=== PATIENT | female | born 1945 | race Caucasian/White ===

== ENCOUNTER 2018-10-28 21:03 | Emergency (ER) | payer MEDICARE ==
[~2018-10-28] VITALS: Ht 165.1 cm; Wt 63.5 kg
--- OUTSIDE RECORDS SUMMARY | ~2018-10-28 | XMS | Clinical Summary ---
Demographics + + + | Address | [address] | | | [place] [address] | + + + | Home Phone | | + + + | Preferred Language | Unknown | + + + | Marital Status | | + + + | Mormon Affiliation | Unknown | + + + | Race | Unknown | + + + | Ethnic Group | Unknown | + + + Author + + + | Author | [facility] | + + + | Organization | [facility] | + + + | Address | Unknown | + + + | Phone | Unavailable | + + + Support + + +---------+ + | Name | Relationship | Address | Phone | + + +---------+ + | Franco Chacon | ECON | Unknown | | + + +---------+ + | Michael Taylor | ECON | Unknown | | + + +---------+ + Care Team Providers + +------+ + | Care Tool Engine Lathe Set Up Operator Name | Role | Phone | + +------+ + | Jw Dutton MD | PP | | + +------+ + Allergies No Known Allergies Current Medications + + +-------+---------+------+------+-------+ | Prescription | Sig. | Disp. | Refills | Star | End | Statu | | | | | | t | Date | s | | | | | | Date | | | + + +-------+---------+------+------+-------+ | aspirin EC 81 MG | Take 81 mg by mouth | | | | | Activ | | EC tablet | daily. | | | | | e | + + +-------+---------+------+------+-------+ | | Take 1 tablet by | | | | | Activ | | candesartan-hydrochl | mouth daily. | | | | | e | | orothiazide (ATACAND | | | | | | | | HCT) 32-12.5 MG per | | | | | | | | tablet | | | | | | | + + +-------+---------+------+------+-------+ | nebivolol | Take 10 mg by mouth | | | | | Activ | | (BYSTOLIC) 10 MG | daily. | | | | | e | | tablet | | | | | | | + + +-------+---------+------+------+-------+ | loratadine | Take 10 mg by mouth | | | | | Activ | | (CLARITIN) 10 MG | daily. | | | | | e | | tablet | | | | | | | + + +-------+---------+------+------+-------+ | | Take 12.5 mg by | | | | | Activ | | hydrochlorothiazide | mouth daily. | | | | | e | | (MICROZIDE) 12.5 MG | | | | | | | | capsule | | | | | | | + + +-------+---------+------+------+-------+ | LORazepam (ATIVAN) | Take 0.5 mg by mouth | | | | | Activ | | 0.5 MG tablet | every 6 (six) hours | | | | | e | | | as needed for | | | | | | | | Anxiety. | | | | | | + + +-------+---------+------+------+-------+ | Multiple | Take by mouth. | | | | | Activ | | Vitamins-Minerals | | | | | | e | | (OCUVITE PO) | | | | | | | + + +-------+---------+------+------+-------+ | omeprazole | Take 20 mg by mouth | | | | | Activ | | (PRILOSEC) 20 MG | every morning before | | | | | e | | capsule | breakfast. | | | | | | + + +-------+---------+------+------+-------+ Active Problems Not on file Family History + + +------+ + | Medical History | Relation | Name | Comments | + + +------+ + | Cancer | Daughter | | skin | + + +------+ + | Cancer | Mother | | skin | + + +------+ + | Hypertension | Mother | | | + + +------+ + | Thyroid disease | Sister | | | + + +------+ + | Thyroid disease | Sister | | | + + +------+ + + +------+--------+ + | Relation | Name | Status | Comments | + +------+--------+ + | Daughter | | | | + +------+--------+ + | Mother | | | | + +------+--------+ + | Sister | | | | + +------+--------+ + | Sister | | | | + +------+--------+ + Social History + +-------+ +--------+------+ | Tobacco Use | Types | Packs/Day | Years | Date | | | | | Used | | + +-------+ +--------+------+ | Never Smoker | | | | | + +-------+ +--------+------+ + + + | Sex Assigned at | Date Recorded | | | | + + + | Not on file | | + + + Last Filed Vital Signs + + + + | Vital Sign | Reading | Time Taken | + + + + | Blood Pressure | 162/100 | 04/03/2015 11:13 AM PDT | + + + + | Pulse | 98 | 04/03/2015 11:13 AM PDT | + + + + | Temperature | 36.2 C (97.1 F) | 04/03/2015 11:13 AM PDT | + + + + | Respiratory Rate | - | - | + + + + | Oxygen Saturation | 98% | 04/03/2015 11:13 AM PDT | + + + + | Inhaled Oxygen | - | - | | Concentration | | | + + + + | Weight | 75.8 kg (167 lb) | 04/03/2015 11:13 AM PDT | + + + + | Height | - | - | + + + + | Body Mass Index | - | - | + + + + Plan of Treatment + + + + + | Health Maintenance | Due Date | Last Done | Comments | + + + + + | Vaccine: | | | | | Dtap/Tdap/Td (1 - | 7 | | | | Tdap) | | | | + + + + + | Vaccine: Zoster (1 | | | | | of 2) | 8 | | | + + + + + | DEXA SCAN SCREENING | | | | | | 3 | | | + + + + + | Vaccine: | | | | | Pneumococcal 65+ | 3 | | | | Low/Medium Risk (1 | | | | | of 2 - PCV13) | | | | + + + + + | Vaccine: Influenza | | | | | (Season Ended) | 9 | | | + + + + + Results Not on filefrom Last 3 Months Insurance + +--------+ +------+-------+ + | Payer | Benefi | Subscriber | Type | Phone | Address | | | t Plan | ID | | | | | | / | | | | | | | Group | | | | | + +--------+ +------+-------+ + | MEDICARE | MEDICA | [id number] | | | [address] | | | RE | | | | [place] [address] | | | IP-OP | | | | | + +--------+ +------+-------+ + | [employer] | MUTUAL | [id number] | | | | | | [place] | | | | | | | [place] | | | | | + +--------+ +------+-------+ + + +--------+ +--------+ + + | Guarantor Name | Accoun | Relation to | Date | Phone | Billing Address | | | t Type | Patient | of | | | | | | | | | | + +--------+ +--------+ + + | MATTHEW CHACON | Person | Self | [birth year] | Work: | [address] | | | [address] | | [address] | +- | [place], [place] | | | [address] | | | [address]: | [address] | | | | | | | | | | | | | +- | | | | | | | [address] | | + +--------+ +--------+ + +"
--- OUTSIDE RECORDS SUMMARY | ~2018-10-28 | XMS | Encounter Summary ---
Demographics + + + | Address | [address] | | | [place] [address] | + + + | Preferred Language | Unknown | + + + | Marital Status | Single | + + + | Denominational Affiliation | Unknown | + + + | Race | Unknown | + + + | Ethnic Group | Other Race | + + + Author + + + | Author | [facility] | + + + | Organization | [facility] | + + + | Address | Unknown | + + + | Phone | Unavailable | + + + Care Team Providers + +------+ + | Care Multiple Slide Operator Name | Role | Phone | + +------+ + PCP | Unavailable | + +------+ + Encounter Details +--------+ + + + + | Date | Type | Department | Care Team | Description | +--------+ + + + + | 08/17/ | Hospital | LAB CYTOPATHOLOGY | | | | 2009 | Encounter | [address] | | | | | | [facility] | | | | | | [place], [place] | | | | | | [address] | | | +--------+ + + + + Social History + +-------+ +--------+------+ | Tobacco Use | Types | Packs/Day | Years | Date | | | | | Used | | + +-------+ +--------+------+ | Never Assessed | | | | | + +-------+ +--------+------+ + + + | Sex Assigned at | Date Recorded | | | | + + + | Not on file | | + + + + + + + | Job Start Date | Occupation | Industry | + + + + | Not on file | Not on file | Not on file | + + + + + + + + | Travel History | Travel Start | Travel End | + + + + + + | No recent travel history available. | + + documented as of this encounter Plan of Treatment Not on filedocumented as of this encounter Procedures + +--------+ + + + | Procedure Name | Priori | Date/Time | Associated Diagnosis | Comments | | | ty | | | | + +--------+ + + + | NON LONE LEAD LINEMAN CYTOLOGY | Routin | 01/20/2010 | | Results for this | | | e | | | procedure are in the | | | | | | results section. | + +--------+ + + + documented in this encounter Results NON LONE LEAD LINEMAN CYTOLOGY (01/20/2010) + + + + + + | Component | Value | Ref Range | Performed | Pathologist | | | | | At | Signature | + + + + + + | NON-LONE LEAD LINEMAN | SOURCE OF SPECIMEN:A | | [facility] | | | CYTOLOGY | Left Thyroid FNA, done | | DEPARTMENT | | | | by clinicianGROSS | | OF | | | | DESCRIPTION:CLINICAL | | PATHOLOGY | | | | HISTORY: Multiple | | | | | | nodules, rounded | | | | | | aspect. Clinical | | | | | | History:64 year old | | | | | | male with left thyroid | | | | | | nodule, status post FNA | | | | | | by clinician,which was | | | | | | submitted as 20 ml of | | | | | | clear fluid. No | | | | | | air-dried smears | | | | | | weresubmitted. | | | | | | Final Cytologic | | | | | | Diagnosis:Thyroid, left | | | | | | lobe, FNA: - | | | | | | Favor benign thyroid | | | | | | nodule with a cystic | | | | | | component | | | | | | Comment: The cytologic | | | | | | preparation is | | | | | | suboptimal in the | | | | | | absence ofair-dried | | | | | | smears to evaluate | | | | | | colloid and | | | | | | cytoplasm. However | | | | | | the folliculargroups are | | | | | | monomorphic with | | | | | | delicate cytoplasm and | | | | | | there appears to be | | | | | | acystic component with | | | | | | histiocytes. Therefor | | | | | | e, this is not a | | | | | | follicularneoplasm and | | | | | | there are no features to | | | | | | suggest a papillary | | | | | | carcinoma. Case | | | | | | reviewed by:Kitty Collazo, | | | | | | | | | | | | ASCP/CytotechnologistTer | | | | | | wesley Maurice MD, | | | | | | PhD/Pathologist | | | | | | My electronic signature | | | | | | indicates that I have | | | | | | personally reviewed | | | | | | alldiagnostic slides, | | | | | | the gross and/or | | | | | | microscopic portion of | | | | | | thisreport and | | | | | | formulated the final | | | | | | diagnosis. | | | | | | Rendering | | | | | | Diagnostician: El | | | | | | Josafat Leslie, | | | | | | Ph.DPathologistElectroni | | | | | | yousuf Signed 01/23/2010 | | | | + + + + + + + + | Specimen | + + | | + + + + + + + | Performing | Address | City/State/Zipcode | Phone Number | | Organization | | | | + + + + + | [facility] | [address] | [place] [address] | | | PATHOLOGY | [address] | | | + + + + + documented in this encounter Visit Diagnoses Not on filedocumented in this encounter"
--- OUTSIDE RECORDS SUMMARY | ~2018-10-28 | XMS | Clinical Summary ---
Demographics + + + | Address | [address] | | | [place] [address] | + + + | Home Phone | | + + + | Preferred Language | Unknown | + + + | Marital Status | | + + + | Adventist Affiliation | 1077 | + + + | Race | Unknown | + + + | Ethnic Group | Unknown | + + + Author + + + | Author | [facility] | | | and [place] | + + + | Organization | [facility] | | | and [place] | + + + | Address | Unknown | + + + | Phone | Unavailable | + + + Support + + + + + | Name | Relationship | Address | Phone | + + + + + | Franco Gama ECON | [address] | | | | | [place] [address] | | + + + + + Care Team Providers + +------+ + | Care Patient Services Coordinator Name | Role | Phone | + +------+ + | Jw Dutton MD | PP | Unavailable | + +------+ + Allergies + + + + + + | Active Allergy | Reactions | Severity | Noted | Comments | | | | | Date | | + + + + + + | Cozaar | Other (See Comments) | Low | | Made her BP go too | | | | | | low | + + + + + + | Lisinopril | Other (See Comments) | Low | | cough | + + + + + + | Mometasone Furoate | Other (See Comments) | | 09/14/19 | Doesn't recall | | | | | 13 | reaction | + + + + + + | Olmesartan Medoxomil | Other (See Comments) | Low | 09/14/19 | cough | | | | | 13 | | + + + + + + Medications + + + +---------+------+------+-------+ | Medication | Sig | Dispensed | Refills | Star | End | Statu | | | | | | t | Date | s | | | | | | Date | | | + + + +---------+------+------+-------+ | fluticasone | Apply twice daily as | | 0 | 09/1 | | Activ | | (CUTIVATE) 0.05 % | needed for | | | 4/20 | | e | | cream | dermatitis | | | 12 | | | + + + +---------+------+------+-------+ | omeprazole | Take 20 mg by mouth | | 0 | 09/1 | | Activ | | (PRILOSEC) 20 mg | Daily. | | | 4/20 | | e | | TBEC | | | | 12 | | | + + + +---------+------+------+-------+ | fluoxetine | 1 capsule by mouth | | 0 | 09/1 | | Activ | | (PROZAC) 40 MG | daily with 20mg | | | 4/20 | | e | | capsule | tablet | | | 12 | | | + + + +---------+------+------+-------+ | loratadine | 1 tablet by mouth | | 0 | 02/04 | | Activ | | (CLARITIN) 10 mg | daily as needed | | | 09/23 | | e | | tablet | seasonally | | | 12 | | | + + + +---------+------+------+-------+ | ergocalciferol | take 1 capsule by | | 0 | /2 | | Activ | | (VITAMIN D-2) 50,000 | mouth ON TUESDAY AND | | | 12/23 | | e | | units capsule | THURSDAYS | | | 17 | | | + + + +---------+------+------+-------+ | RA CALCIUM CIT | take 1 tablet by | | 0 | 01/2 | | Activ | | PLUS VIT D-3 315-250 | mouth twice a day | | | 12/23 | | e | | MG-UNIT TABS | | | | 17 | | | + + + +---------+------+------+-------+ | magnesium oxide | take 1 tablet by | | 0 | 01/2 | | Activ | | (MAG-OX) 400 mg | mouth three times a | | | 7/20 | | e | | tablet | day before meals | | | 17 | | | + + + +---------+------+------+-------+ | K-PHOS 500 MG | take 1 tablet by | | 0 | 01/2 | | Activ | | tablet | mouth twice a day | | | 7/20 | | e | | | | | | 17 | | | + + + +---------+------+------+-------+ | LORazepam (ATIVAN) | Take 0.5 mg by mouth | | 0 | | | Activ | | 0.5 mg tablet | as needed for | | | | | e | | | Anxiety or Insomnia. | | | | | | + + + +---------+------+------+-------+ | ondansetron | Take 4 mg by mouth | | 0 | | | Activ | | (ZOFRAN) 4 mg TABS | every 6 hours as | | | | | e | | tablet (ED prepack) | needed. | | | | | | + + + +---------+------+------+-------+ | potassium citrate | Take by mouth. 2 | | 0 | | | Activ | | (UROCIT-K) 10 mEq SR | tablets two times | | | | | e | | tablet | daily | | | | | | + + + +---------+------+------+-------+ | furosemide (LASIX) | Take 20 mg by mouth | | 0 | 03/0 | | Activ | | 20 mg tablet | Daily. | | | 8/20 | | e | | | | | | 17 | | | + + + +---------+------+------+-------+ | | Take 12.5 mg by | | 0 | 03/0 | | Activ | | hydroCHLOROthiazide | mouth Daily. | | | 8/20 | | e | | (MICROZIDE) 12.5 MG | | | | 17 | | | | capsule | | | | | | | + + + +---------+------+------+-------+ | sodium | Take 177 mLs by | 2 | 0 | 05/1 | | Activ | | sulfate-potassium | mouth See Admin | Bottle | | 01/23 | | e | | sulfate-magnesium | Instructions. Take | | | 17 | | | | sulfate (SUPREP | one kit, first dose | | | | | | | BOWEL PREP) oral | at 4pm November 24, | | | | | | | solution | second dose at 9pm | | | | | | | | November 24. | | | | | | + + + +---------+------+------+-------+ | ondansetron | Take 1 tablet by | 2 | 0 | 05/1 | | Activ | | (ZOFRAN) 4 mg tablet | mouth See Admin | tablet | | 01/23 | | e | | | Instructions. If | | | 17 | | | | | nausea with prep. | | | | | | | | Stop prep, take 1 | | | | | | | | tab by mouth,wait 30 | | | | | | | | min, restart prep | | | | | | | | may repeat | | | | | | + + + +---------+------+------+-------+ Active Problems + + + | Problem | Noted Date | + + + | Anemia | 11/25/2016 | + + + | H/O Diverticulosis - Colonoscopy Aug 2016 | 09/01/2016 | + + + | Alcohol consumption - Moderate | 09/01/2016 | + + + | Beta Benoit - Daily Use | 08/31/2016 | + + + | H/O Hysterectomy | 08/31/2016 | + + + | Diarrhea, unspecified type | 08/04/2016 | + + + | Nausea with vomiting | 08/04/2016 | + + + | Abdominal pain | 08/04/2016 | + + + | ETOH abuse | 08/04/2016 | + + + | Varicose veins of other specified sites | 07/29/2016 | + + + | Benign neoplasm of skin | 07/29/2016 | + + + | Seborrheic keratosis | 07/29/2016 | + + + | Pernicious anemia | 07/29/2016 | + + + | Osteoporosis | 07/29/2016 | + + + | Adiposity | 07/29/2016 | + + + | Hypomagnesemia | 07/29/2016 | + + + | Hypokalemia | 07/29/2016 | + + + | Hypernatremia | 07/29/2016 | + + + | Hemangioma | 07/29/2016 | + + + | Diffuse goiter | 07/29/2016 | + + + | Epigastric pain | 07/29/2016 | + + + | Abnormal liver function tests | 07/29/2016 | + + + | Edema | 07/29/2016 | + + + | Diarrhea | 07/29/2016 | + + + | Major depressive disorder | 07/29/2016 | + + + | Daytime somnolence | 07/29/2016 | + + + | Gastroesophageal reflux disease | 07/29/2016 | + + + | Chronic cough | 07/29/2016 | + + + | Hypertension | 07/29/2016 | + + + | Loss of appetite | 07/29/2016 | + + + | Alcoholic liver damage | 07/29/2016 | + + + | Acute pancreatitis | 07/29/2016 | + + + | Right upper quadrant abdominal pain | 07/29/2016 | + + + | Abdominal distension | 07/29/2016 | + + + | Chronic fatigue syndrome | | + + + | THYROID NODULE | | + + + | TREMOR, ESSENTIAL | | + + + | Depression | | + + + | ABNORMAL CHEST XRAY | | + + + | TENSION HEADACHE | | + + + | TEMPOROMANDIBULAR JOINT PAIN | | + + + | ALLERGIC RHINITIS | | + + + | POSTMENOPAUSAL OSTEOPOROSIS | | + + + | OTHER DYSPNEA AND RESPIRATORY ABNORMALITIES | | + + + Resolved Problems +---------+ + + | Problem | Noted | Resolved | | | Date | Date | +---------+ + + | Fatigue | 07/29/19 | | | | 17 | 7 | +---------+ + + Immunizations + + + + | Name | Dates Previously Given | Next Due | + + + + | PNEUMOCOCCAL | 03/27/2015 | | | CONJUGATE 13-VALENT | | | | (PCV13) | | | + + + + Family History + + +------+ + | Medical History | Relation | Name | Comments | + + +------+ + | Cirrhosis | Father | | | + + +------+ + | Familial tremors | Father | | | + + +------+ + | High blood pressure | Mother | | | + + +------+ + | Osteoporosis | Mother | | | + + +------+ + | Cirrhosis | Paternal | | CRYPTOGENIC | | | Grandmoth | | | | | er | | | + + +------+ + | Fibromyalgia | Sister | | | + + +------+ + + +------+ + + | Relation | Name | Status | Comments | + +------+ + + | Father | | | age related and liver disease | | | | (Age | | | | | 85) | | + +------+ + + | Mother | | Alive | | + +------+ + + | Paternal Grandmother | | Alive | | + +------+ + + | Sister | | Alive | | + +------+ + + | Sister | | Alive | | + +------+ + + Social History + +-------+ +--------+------+ | Tobacco Use | Types | Packs/Day | Years | Date | | | | | Used | | + +-------+ +--------+------+ | Never Smoker | | | | | + +-------+ +--------+------+ + +---+---+---+ | Smokeless Tobacco: | | | | | Never Used | | | | + +---+---+---+ + + +---------+ + | Alcohol Use | Drinks/We | oz/Week | Comments | | | ek | | | + + +---------+ + | Yes | 0 | 1.2 | daily | | | Standard | | | | | drinks or | | | | | | | | | | equivalen | | | | | t 2 | | | | | Glasses | | | | | of wine | | | + + +---------+ + + + + | Sex Assigned at [...] recent travel history available. | + + Last Filed Vital Signs + + + + | Vital Sign | Reading | Time Taken | + + + + | Blood Pressure | 96/58 | 11/26/20161114 PDT | + + + + | Pulse | 82 | 11/26/20165 PDT | + + + + | Temperature | 37 C (98.6 F) | 11/26/2016 1111 PDT | + + + + | Respiratory Rate | 13 | 11/26/20161114 PDT | + + + + | Oxygen Saturation | 92% | 11/26/20161114 PDT | + + + + | Inhaled Oxygen | - | - | | Concentration | | | + + + + | Weight | 67.6 kg (149 lb) | 11/26/2016910 PDT | + + + + | Height | 165.1 cm (5' 5") | 11/26/2016910 PDT | + + + + | Body Mass Index | 24.79 | 11/26/2016910 PDT | + + + + Plan of Treatment + + + + + | Health Maintenance | Due Date | Last Done | Comments | + + + + + | Hepatitis C | | | | | Screening | 8 | | | + + + + + | Vaccine: | | | | | Dtap/Tdap/Td (1 - | 7 | | | | Tdap) | | | | + + + + + | Breast Cancer | | | | | Screening (Ages | 8 | | | | 50-74) | | | | + + + + + | Vaccine: Zoster (1 | | | | | of 2) | 8 | | | + + + + + | Adult Annual | | | | | Wellness Visit | 5 | | | + + + + + | Vaccine: | | 03/27/2015 | | | Pneumococcal 65+ | 6 | | | | Low/Medium Risk (2 | | | | | of 2 - PPSV23) | | | | + + + + + | Vaccine: Influenza | | | | | (Season Ended) | 9 | | | + + + + + | Colorectal Cancer | | 11/26/2016, 09/01/2016, | | | Screening | 7 | 09/01/2016 | | | (Colonoscopy) | | | | + + + + + Results Not on filefrom Last 3 Months Insurance + +--------+ +--------+ +---------+--------+ | Payer | Benefi | Subscriber | Effect | Phone | Address | Type | | | t Plan | ID | garcia | | | | | | / | | Dates | | | | | | Group | | | | | | + +--------+ +--------+ +---------+--------+ | MEDICARE | MEDICA | [id number] | | [phone] | | Medica | | | RE | | 013-Pr | 5 | | re | | | PART A | | esent | | | | | | AND B | | | | | | + +--------+ +--------+ +---------+--------+ | AARP | AARP | [id number] | 10/05/19 | [phone] | | Indemn | | | MDCR | | 16-Pre | 0 | | ity | | | SUPPL | | sent | | | | + +--------+ +--------+ +---------+--------+ + +--------+ +--------+ + + | Guarantor Name | Accoun | Relation to | Date | Phone | Billing Address | | | t Type | Patient | of | | | | | | | | | | + +--------+ +--------+ + + | Casandra Gama | Person | Self | [birth year] | | [address] | | [place] | [place] | | 1946 | [phone] | [place] [address] | | | [place] | | | 3 (Home) | | | | | | | [phone] | | | | | | | 3 (Work) | | + +--------+ +--------+ + + Advance Directives Patient has advance care planning documents on file. For more information, please contact:[facility] [place] [address]
--- OUTSIDE RECORDS SUMMARY | ~2018-10-28 | XMS | Clinical Summary ---
Demographics + + + | Address | [address] | | | [place] [address] | + + + | Home Phone | | + + + | Preferred Language | Unknown | + + + | Marital Status | | + + + | Yazidism Affiliation | 1077 | + + + | Race | Unknown | + + + | Ethnic Group | Unknown | + + + Author + + + | Author | [facility] | | | and [place] | + + + | Organization | [facility] | | | and [place] | + + + | Address | Unknown | + + + | Phone | Unavailable | + + + Support + + + + + | Name | Relationship | Address | Phone | + + + + + | Franco Gama ECON | [address] | | | | | [place] [address] | | + + + + + Care Team Providers + +------+ + | Care Crank Hand Name | Role | Phone | + [...] +--------+ +---------+--------+ | MEDICARE | MEDICA | [id number] | | [phone] | | Medica | | | RE | | 013-Pr | 5 | | re | | | PART A | | esent | | | | | | AND B | | | | | | + +--------+ +--------+ +---------+--------+ | AARP | AARP | [id number] | 10/05/19 | [phone] | | Indemn [...] Person | Self | [birth year] | | [address] | | [place] | [place] | | 1946 | [phone] | [place] [address] | | | [place] | | | 3 (Home) | | | | | | | [phone] | | | | | | | 3 (Work) | | + +--------+ +--------+ + + Advance Directives Patient has advance care planning documents on file. For more information, please contact:[facility] [place] [address]
--- OUTSIDE RECORDS SUMMARY | ~2018-10-28 | XMS | Clinical Summary ---
Demographics + + + | Address | [address] | | | [place] [address] | + + + | Preferred Language | Unknown | + + + | Marital Status | Single | + + + | Roman Catholic Affiliation | Unknown | + + + | Race | Unknown | + + + | Ethnic Group | Other Race | + + + Author + + + | Author | [facility] | + + + | Organization | [facility] | + + + | Address | Unknown | + + + | Phone | Unavailable | + + + Care Team Providers + +------+ + | Care Wardrobe Coordinator Name | Role | Phone | + +------+ + PP | Unavailable | + +------+ + Source Comments [facility] is fully live on both [facility] and [facility] Allergies Not on File Medications Not on file Active Problems Not on file Social History + +-------+ +--------+------+ | Tobacco [...] recent travel history available. | + + Plan of Treatment Not on file Results Not on filefrom Last 3 Months Insurance + +--------+ +--------+-------+---------+--------+ | Payer | Benefi | Subscriber | Effect | Phone | Address | Type | | | t Plan | ID | garcia | | | | | | / | | Dates | | | | | | Group | | | | | | + +--------+ +--------+-------+---------+--------+ | LIFEWISE | LIFEWI | [phone] | | | | Indemn | | | SE | xxx | 013-Pr | | | ity | | | | | esent | | | | + +--------+ +--------+-------+---------+--------+ + +--------+ +--------+-------+ + | Guarantor Name | Accoun | Relation to | Date | Phone | Billing Address | | | t Type | Patient | of | | | | | | | | | | + +--------+ +--------+-------+ + | Casandra Gama | Person | Self | [birth year] | [address] | | | [place] | | 1946 | | [place] [address] | | | [place]illo | | | | | + +--------+ +--------+-------+ +"
--- OUTSIDE RECORDS SUMMARY | ~2018-10-28 | XMS | Clinical Summary ---
Demographics + + + | Address | [address] | | | [place] [address] | + + + | Preferred Language | Unknown | + + + | Marital Status | Single | + + + | Yazidi Affiliation | Unknown | + + + [...] Team Providers + +------+ + | Care Broker Name | Role | Phone | + +------+ + PP | Unavailable | + +------+ + Source Comments LESA is fully live on both [facility] and [facility] InPatient.[facility] Allergies Not on File Medications Not on [...] Person | Self | [birth year] | [address] | | | henna/Vicente | | 1946 | | [place] [address] | | | castillo | | | | | + +--------+ +--------+-------+ +"
--- OUTSIDE RECORDS SUMMARY | ~2018-10-28 | XMS | Encounter Summary ---
Demographics + + + | Address | [address] | | | [place] [address] | + + + | Preferred Language | Unknown | + + + | Marital Status | Single | + + + | Spiritism Affiliation | Unknown | + + + | Race | Unknown | + + + | Ethnic Group | Other Race | + + + Author + + + | Author | [facility] | + + + | Organization | [facility] | + + + | Address | Unknown | + + + | Phone | Unavailable | + + + Care Team Providers + +------+ + | Care Inspector Balance Bridge Name | Role | Phone | + [...] Cleary | | | | | | [facility] | | | | | | [place], [place] | | | | | | [phone] | | | +--------+ + + + [...] + +--------+ + + + | NON TRANSMISSION MAINTENANCE SUPERVISOR CYTOLOGY | Routin | 01/20/2010 | | Results for this | | | e | | | procedure are in the | | | | | | results section. | + +--------+ + + + documented in this encounter Results NON TRANSMISSION MAINTENANCE SUPERVISOR CYTOLOGY (01/20/2010) + + + + + + | Component | Value | Ref Range | Performed | Pathologist | | | | | At | Signature | + + + + + + | NON-TRANSMISSION MAINTENANCE SUPERVISOR | SOURCE OF SPECIMEN:A | | [facility] [...] | + + + + + | [facility] | [address] | [place] [address] | | | PATHOLOGY | [address] | | | + + + + + documented in this encounter Visit Diagnoses Not on filedocumented in this encounter"
--- OUTSIDE RECORDS SUMMARY | ~2018-10-28 | XMS | Clinical Summary ---
Demographics + + + | Address | [address] | | | [place] [address] | + + + | Home Phone | | + + + | Preferred Language | Unknown | + + + | Marital Status | | + + + | Jewish Affiliation | Unknown | + + + | Race | Unknown | + + + | Ethnic Group | Unknown | + + + Author + + + | Author | [facility] | + + + | Organization | [facility] | + + + | Address [...] Team Providers + +------+ + | Care Piling Setter Name | Role | Phone | + [...] +------+-------+ + | MEDICARE | MEDICA | [id number] | | | [address] | | | RE | | | | [place] [address] | | | IP-OP | | | | | + +--------+ +------+-------+ + | M[employer]UAL OF [employer] | MUTUAL | [id number] | | | | | | OF | | | | | | | [place] | | | | | + +--------+ [...] | Self | [birth year] | Work: | [address] | | | al/Vicente | | [address] | +- | [place], [place] | | | castillo | | | [address] Home: | [phone] | | | | | | | | | | | | | +- | | | | | | | [phone] | | + +--------+ +--------+ + +"
[~2018-10-28 21:03] MED LIST: BYSTOLIC2.5 MG PO; CANDESARTAN-HC1 EAC1 PO; CIPROFLOXACIN500 MG PO; CITRUS CALCIUM +1 EA PO; FLUOXETINE HCL20 MG PO; K-PHOS ORIGINAL1 EA PO; LORAZEPAM0.5 MG PO; MAG-OXIDE400 MG PO; MAGNESIUM250 M1 PO; POTASSIUM CHLO10 ME1 PO; SULFAMETHOXAZO1 EAC1 PO; VITAMIN D250000 UNIT PO; ZOFRAN4 MG PO
--- NOTE | 2018-10-29 07:37 | EKG ---
[facility] [address] [facility] [place] [address] S[address] Sin[address] tachy[address] Nonspecific ST and T wave abnormality Abnormal ECG No previous ECGs available Confirmed by GEORGIANA VIEIRA MD ([id number]) on 10/29/2018 7:36:53 AM Electronically Signed By: GEORGIANA VIEIRA MD 10/29/18 0737 PATIENT NAME: MATTHEW CHACON Electrocardiogram DATE OF : 49 PHYSICIAN: GEORGIANA VIEIRA MD REPORT #: [id number] REPORT IS CONFIDENTIAL AND NOT TO BE RELEASED WITHOUT AUTHORIZATION
== END 2018-10-29 00:53 | disposition home or self-care (01) ==
LOC: ED 21:03
DX: R07.9 Chest pain, unspecified (principal); I10 Essential (primary) hypertension; Z90.49 Acquired absence of other specified parts of digestive tract; Z90.710 Acquired absence of both cervix and uterus; Z90.89 Acquired absence of other organs; Z79.899 Other long term (current) drug therapy
CPT/HCPCS: 71045; 80053; 83735; 83880; 84484; 85025; 93005; 93010; 96360; 99285-25; G0480; J7030

== ENCOUNTER 2019-02-04 09:23 | Observation (INO) | payer MEDICARE ==
[~2019-02-04] VITALS: Ht 165.1 cm; Wt 63.5 kg
[~2019-02-04 09:23] MED LIST changes: +ESCITALOPRAM OX10 MG PO; +FLUTICASONE PRO15 GM TOP; +SEROQUEL25 MG PO; +VANCOCIN HCL125 MG PO
--- OUTSIDE RECORDS SUMMARY | 2019-02-04 09:26 | XMS ---
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 Care History Medical/Surgical 12/11/2018 [facility] - [facility] REFERRAL MADE- FURTHER FOLLOW UP WITH PATIENT. - REFERRED FOR A\T\amp;D SERVICES IF PATIENT IS WILLING TO ACCEPT HELP. E.D. VISIT COUNT (12 MO.) [address] TOTAL 7 NOTE: Visits indicate total known visits. ED/UCC VISIT TRACKING (12 MO.) [facility] [place] [facility] COMPLAINT: - VOMITTING 01/28/2019 23:53 [facility] [place] TYPE: Emergency DIAGNOSES: - FALL - Contusion of right lower leg, initial encounter - Laceration without foreign body of other part of head, initial encounter - Concussion without loss of consciousness, initial encounter 12/12/2018 08:36 [facility] [place] TYPE: Emergency COMPLAINT: - CAN'T STAND UP DIAGNOSES: - Essential (primary) hypertension - Alcohol dependence, uncomplicated - Nutritional anemia, unspecified - Unspecified protein-calorie malnutrition - Weakness - Hypomagnesemia - Acquired absence of both cervix and uterus - Other mcc (current) drug therapy - Acquired absence of other specified parts of digestive tract - Functional quadriplegia 12/10/2018 13:18 [facility] [place] TYPE: Emergency COMPLAINT: - FEET SWELLING,COUGH,WEAKNESS DIAGNOSES: - Other pancytopenia - Essential (primary) hypertension - Other specified disorders of veins - Acquired absence of other specified parts of digestive tract - Acquired absence of both cervix and uterus - Pain in right lower leg - Pleural effusion, not elsewhere classified 11/23/2018 12:15 [facility] [place] TYPE: Emergency DIAGNOSES: - Weakness - Lobar pneumonia, unspecified organism - VOMITING AND DIARRHEA NOT ABLE TO EAT WEAKNESS - Other pancytopenia - Urinary tract infection, site not specified 10/28/2018 21:04 [facility] [place] TYPE: Emergency COMPLAINT: - SOB DIAGNOSES: - Acquired absence of other specified parts of digestive tract - Chest pain, unspecified - Essential (primary) hypertension - Acquired absence of both cervix and uterus - Other chest pain - Acquired absence of other organs - Other rodent exterminator (current) drug therapy 04/05/2018 15:21 [facility] [place] TYPE: Emergency COMPLAINT: - SHORTNESS OF BREATH INPATIENT VISIT TRACKING (12 MO.) 11/23/2018 12:15 [facility] [place] [facility] DIAGNOSES: - Urinary tract infection, site not specified - Weakness - Other pancytopenia - Lobar pneumonia, unspecified organism 04/07/2018 15:08 [facility] [place] TYPE: Medical Surgical DIAGNOSES: - DIARRHEA EPIGASTRIC 04/05/2018 20:55 [facility] [place] [facility] COMPLAINT: - DIARRHEA EPIGASTRIC PAIN DIAGNOSES: - Hypokalemia - Hypomagnesemia - Alcohol use, unspecified with unspecified alcohol-induced disorder - Chest pain, unspecified - Noninfective gastroenteritis and colitis, unspecified - Gastro-esophageal reflux disease without esophagitis - Abnormal levels of other serum enzymes [email or web address]
[2019-02-04] MEDS ORDERED: MELATONIN3 MG PO (09:38)
--- NOTE | 2019-02-04 18:29 | NUR ---
PATIENT ARRIVED TO UNIT FROM ED THIS AFTERNOON. HGB 6 AFTER NORMAL SALINE BOLUS IN ED. TRANSFUSING FIRST OF 2 UNITS PRBCs NOW. TOLERATING IT WELL. INFUSING AT 200ML/HR INTO RIGHT AC IV. LEFT FOREARM IV PLACED TO START NS+40MEQ @125 WITH MAG RIDER INFUSING. 4GM OF MAG TOTAL GIVEN. 40MEQ PO KCL GIVEN WELL. REGULAR DIET. ALERT AND ORIENTED. BRUISING/HEMATOMA RIGHT KNEE, LEFT DONALDSON. RIGHT EYE BRUISING AND RIGHT BREAST. OXYCODONE FOR PAIN PRN.
--- NOTE | 2019-02-04 19:10 | NUR ---
BEDSIDE REPORT RECEIVED FROM OFFGOING RN. PT RESTING IN BED AWAKE. BLOOD TRANSFUSING. PT DENIES NEEDS AT THIS TIME. CALL LIGHT IN REACH.
--- NOTE | 2019-02-04 19:30 | NUR ---
PT UTILIZES CALL LIGHT, WOULD LIKE TO WIPE HER HANDS. WARM WASH CLOTH PROVIDED. PT DENIES FURTHER NEEDS. CALL LIGHT IN REACH.
--- NOTE | 2019-02-04 20:47 | NUR ---
PT ASSSESSMENT COMPLETE. PT RESTING IN BED AWAKE, WATCHING TV. PT REPORTS PAIN 8/10 TO BACK AND LLEG. PT STATES THIS IS HER NORM, AND IS TOLERABLE. EDUCATION PROVIDED REGARDING AVAILABILITY OF PAIN MEDICATION. PT STATES THAT SHE IS ABLE TO WAIT UNTIL NEXT AVAILABLE DOSE. WARM COMPRESS PROVIDED FOR PT'S LEG REQUESTED. PT DENIES NAUSEA OR SOB. PT WITH SCATTERED BRUISING, STERI STRIPS PRESENT TO L EYEBROW. PT DENIES FURTHER NEEDS AT THIS TIME. CALL LIGHT WITHIN REACH.
--- NOTE | 2019-02-04 22:20 | NUR ---
PT UTILIZES CALL LIGHT, REQUESTS TO USE THE BEDSIDE COMMODE. PT UP TO COMMODE AND BACK TO BED WITH 1PA AND FWW. TRANSFER AND MOVEMENT IS PAINFUL PER PT. PT MOANING WITH MOVEMENT. 150 ML URINE OUTPUT, DARK AND CONCENTRATED. EDUCATION PROVIDED REGARDING ORAL INTAKE. PT STATES UNDERSTANDING, ICE WATER REFILLED. PT DENIES FURTHER NEEDS AT THIS TIME. CALL LIGHT IN REACH.
--- NOTE | 2019-02-04 22:46 | NUR ---
PT RATING PAIN 6/10 GENERALIZED. REQUESTS PRN PAIN MEDCITAION, ADMINISTERED. PT DENIES FURTHER NEEDS AT THIS TIME. ICE WATER REFILLED. CALL LIGHT IN REACH.
--- NOTE | 2019-02-05 02:20 | NUR ---
PT UTILIZES CALL LIGHT TO USE THE COMMODE. 1 PA AND FWW TO COMMODE AND BACK TO BED. TRANSFER IS PAINFUL FOR PT, RATES PAIN 8/10 WITH MOVEMENT. ASSESSMENT COMPLETE. PT ALERT AND ORIENTED X 4, CALLS HAND SIZER BY NAME. STATES THAT ROUND UP IS ALMOST HERE. HOWEVER, PT REPORTS HEARING BANGING ON HER WINDOW. PT STATES "ITHINK IM HALLUCINATING". PT DENIES VISUAL DISTURBANCES, NO DIAPHORESIS NOTED. STAGE II PRESSURE ULCER PHOTOGRAPHED, COVERED WITH ALLEVYN FOAM DRESSING. ASSESSMENT OTHERWISE UNCHANGED FROM PREVIOUS. PT PROVIDED WITH ICE WATER, 7 UP, AND JELLO. PT DENIES FURTHER NEEDS. CALL LIGHT WITHIN REACH.
--- NOTE | 2019-02-05 03:28 | NUR ---
NOTIFIED OF LOW URINE OUTPUT FOR LAST 4 HOURS AND BLADDER SCAN VOLUME OF ~100 ML. NEW ORDERS RECEIVED.
--- NOTE | 2019-02-05 05:30 | NUR ---
PT UTLIZES CALL LIGHT, REQUETS PRN PAIN MEDICATION. ADMINISTERED. PT DENIES FURTHER NEEDS AT THIS TIME. CALL LIGHT IN REACH.
--- NOTE | 2019-02-05 05:42 | NUR ---
PT AWAKE MOST OF SHIFT. OXYCODONE FOR PAIN. NO NAUSEA OR SOB THIS SHIFT. MULTIPLE AREAS OF BRUISING. ALLEVYN FOAM TO L BUTTOCKS. IVF INFUSING. 1 PA WITH FWW. PT PAINFUL WITH MOVEMENT. HEEL PROTECTORS IN PLACE FOR PT REPORTS OF SORE HEELS.
--- NOTE | 2019-02-05 06:05 | NUR ---
PT UTILIZES CALL LIGHT, REQUESTS TO USE THE BSC. 1PA WITH FWW TO BSC AND BACK TO BED. PT STATES THAT PAIN IS IMPROVED AFTER PRN SURFACE GRINDER TENDER. RATES 11/13. PT DENIES FURTHER NEEDS AT THIS TIME. CALL LIGHT IN REACH. PT AGAIN ENCOURAGED TO TAKE FREQUENT DRINKS OF PO FLUIDS.
--- NOTE | 2019-02-05 07:41 | NUR ---
BEDSIDE REPORT RECEIVED, PT IS AWAKE AND ALERT AT SHIFT CHANGE. DENIES DISCOMFORTS, STATES SHE WILL HURT WHEN SHE MOVES TO GET UP THOUGH. ASSISTED WITH BREAKFAST ORDER, FLUIDS ENCOURAGED UNDERSTANDING VERBLAIZED. PT DENIES ANY RECENT OR CURRENT NAUSEA DENIES OTHER DISCOMFORTS.
--- NOTE | 2019-02-05 11:43 | NUR ---
PT CONTINUES AWAKE AND RESTING IN BED, REFUSES UP TO THE CHAIR. IS PRESENT IN THE ROOM. UP IN THE ROBERTO WITH P/T EARLIER WELL TOLERATED. EATING LUNCH AT THIS TIME
--- NOTE | 2019-02-05 13:42 | NUR ---
MEDICATION RECONCILIATION COMPLETED WITH PATIENT INTERVIEW.
--- NOTE | 2019-02-05 13:59 | NUR ---
PT UP AMBULATING THE ROBERTO WITH STAFF STANDBY ASSIST
--- NOTE | 2019-02-05 18:24 | NUR ---
PT UP TO TOILET HAS LOOSE STOOL, RETURNS TO BED WITH A WARM BLANKET. URINE OUTPUT HAS INCREASED SUFFICIENTLY WITH IV FLUIDS.
--- NOTE | 2019-02-05 19:15 | NUR ---
BEDSIDE REPORT RECEIVED FROM OFFGOING RNKEAGAN. PT RESTING IN BED AWAKE. PARTICIPATES IN REPORT, DENIES NEEDS. CALL LIGHT IN REACH.
--- NOTE | 2019-02-05 19:45 | NUR ---
ACCOMPANIED PATIENT AMBULATE AROUND THE NURSE'S STATIONS X2.
--- NOTE | 2019-02-05 20:00 | NUR ---
PT UTILIZES CALL LIGHT, REQUESTS TO AMBULATE IN THE ROBERTO. PT UP WITH THERMAL CUTTING TRACER MACHINE OPERATOR AND FWW, WALKS IN ROBERTO AND RETURNS TO ROOM. PT TOLERTED WELL. STATES THAT PAIN IS INCREASED TO 7/10 BUT REPORTS THAT THIS IS TOLERABLE. PT DENIES NAUSEA OR SOB. ABD WITH MODERATE DISTENSION. PT DENIES ABD TENDERNESS. BT'S ACTIVE. BLE'S AND FEET WITH 1+ EDEMA. IVF INFUSING WELL, IV FLUSHED. PT DENIES FURTHER NEEDS AT THIS TIME. CALL LIGHT IN REACH.
--- NOTE | 2019-02-05 21:26 | NUR ---
1 PA TO THE BATHROOM AND BACK TO BED USING WALKER. CALL LIGHT AND SIDE TABLE WITHIN REACH.
--- NOTE | 2019-02-05 22:42 | NUR ---
PT UTIILIZES CALL LIGHT, REQUESTS PRN PAIN MEDICATION. PT RATES PAIN 7/10 TO BACK AND L LEG. OXYCONDE ADMINISTERED. PT DENIES FURTHER NEEDS AT THIS TIME. CALL LIGHT IN REACH.
--- NOTE | 2019-02-05 23:04 | NUR ---
ASSISTED TO THE BATHROOM. PATIENT IS BACK IN BED. CALL LIGHT IN REACH.
--- NOTE | 2019-02-06 01:03 | NUR ---
PT RESTING IN BED WITH EYES CLOSED. APPEARS TO BE SLEEPING. RESPIRATIONS EVEN AND UNLABORED. CALL LIGHT IN REACH.
--- NOTE | 2019-02-06 03:54 | NUR ---
PT UTILIZES CALL LIGHT TO USE THE BATHROOM. PT UP TO BATHROOM AND BACK TO BED WITH 1PA AND FWW. PT ASSESSMENT COMPLETE. PT STATES THAT PAIN IS ELEVATED DUE TO MOVEMENT OF GOING TO THE BATHROOM, AGREES THAT PAIN MED IS NOT YET AVAILABLE, STATES THAT PAIN IS TOLERABLE. PT DENIES NAUSEA OR SOB. ASSESSMENT UNCHANGED FROM PREVIOUS. PT DENIES FURTHER NEEDS AT THIS TIME. CALL LIGHT IN REACH.
--- NOTE | 2019-02-06 04:39 | NUR ---
CALL LIGHT ANSWERED. HELPED PATIENT REPOSITIONED/ UP IN BED.
--- NOTE | 2019-02-06 05:26 | NUR ---
PATIENT CALLED AND REQUESTED PAIN MEDICATION. PATIENT RATES PAIN AT A 6/10 IN HER BACK AND UPPER LEFT LEG. PATIENT GIVEN PRN PAIN MEDICATION PER ORDER. PATIENT DENIES ANY FURTHER NEEDS. CALL LIGHT IN REACH.
--- NOTE | 2019-02-06 06:30 | NUR ---
PT SLEPT WELL THIS SHIFT. OXYCODONE FOR PAIN. NO NAUSEA OR SOB. MULTIPLE AREAS OF BRUISING. ALLEVYN FOAM TO L BUTTOCK. BLE NONPITTING EDEMA. IV SL. 1 PA WITH FWW.
--- NOTE | 2019-02-06 07:31 | NUR ---
Pt appears to be sleeping. Pt has no notable distress. Personal supplies and call light within reach. No needs at this time.
[2019-02-06] MEDS ORDERED: OXYCODONE HCL5 MG PO (11:08)
--- NOTE | 2019-02-06 12:34 | NUR ---
PT SITTING IN CHAIR, DRESSED WITH HER BILL BY HER SIDE. SHE SAID SHE IS WAITING FOR DC INSTRUCTIONS. HAD PLEASANT VISIT, EXTENDED A BLESSING. WILL FOLLOW NEEDED
--- NOTE | 2019-02-06 15:31 | NUR ---
FAXED CHART NOTES TO [facility] INCLUDING FACE SHEET, ORDER, H AND P, DC SUMMARY AND PACKET, PT EVAL AND NOTES. RECEIVED FAX CONFIRMATION. ALSO CALLED AND SPOKE WITH FE AT [facility] AND RECEIVED VERBAL CONFIRMATION THAT THEY GOT THE ORDERS.
== END 2019-02-06 11:30 | disposition home or self-care (01) ==
LOC: ED 09:23 → MS 09:25
PROVIDERS: ADMIT Internal Medicine
DX: D62 Acute posthemorrhagic anemia (principal); E86.0 Dehydration; E87.6 Hypokalemia; E83.42 Hypomagnesemia; G25.0 Essential tremor; K70.30 Alcoholic cirrhosis of liver without ascites; K76.6 Portal hypertension; D73.1 Hypersplenism; S80.12XA Contusion of left lower leg, initial encounter; S80.11XA Contusion of right lower leg, initial encounter; S20.211A Contusion of right front wall of thorax, initial encounter; S30.1XXA Contusion of abdominal wall, initial encounter; S00.83XA Contusion of other part of head, initial encounter; D61.818 Other pancytopenia; F32.9 Major depressive disorder, single episode, unspecified; K29.20 Alcoholic gastritis without bleeding; W19.XXXA Unspecified fall, initial encounter; Z79.899 Other long term (current) drug therapy; Z79.51 Long term (current) use of inhaled steroids
CPT/HCPCS: 36415; 36430; 70450; 71046; 74177; 80053; 81001; 82247; 83735; 84132; 85018; 85025; 85610; 85730; 86850; 86900; 86901; 86920; 96361; 96365; 96376; 97110; 97116; 97161; 99285-25; G0378; J2405; J3475; J3480; J7030; J7120; P9016; Q9967

== ENCOUNTER 2019-02-11 05:54 | Emergency (ER) | payer MEDICARE ==
[~2019-02-11] VITALS: Ht 162.6 cm; Wt 63.5 kg
[~2019-02-11 05:54] MED LIST changes: +MELATONIN3 MG PO; +OXYCODONE HCL5 MG PO
--- OUTSIDE RECORDS SUMMARY | 2019-02-11 05:56 | XMS ---
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 - Has Care Guidelines - [facility] - 2 Visits in 30 Days CARE PROVIDERS THONG REGALADO Marketing Communications Manager/Crew Truck Driver 12/11/2018-Current PHONE: [phone] Name Unknown Residential Facility Current PHONE: [phone] THONG REGALADO Primary Care Current PHONE: Unknown Primary Care Primary Care Current PHONE: Unknown Abiodun has no Care Guidelines for this patient. Care History Medical/Surgical 02/06/2019 [facility] - PATIENT AND PATIENT ARE BOTH REFUSING SERVICES FROM [employer] AND [facility]. - [facility] WILL TRY TO CONTACT PATIENT AND HER TO SEE IF THEY WILL ACCEPT RESOURCES. 12/11/2018 [facility] - [facility] REFERRAL MADE- FURTHER FOLLOW UP WITH PATIENT. - REFERRED FOR A\T\amp;D SERVICES IF PATIENT IS WILLING TO ACCEPT HELP. Natalia VISIT COUNT (12 MO.) 3 [facility] 5 [facility]. TOTAL 8 NOTE: Visits indicate total known visits. ED/UCC VISIT TRACKING (12 MO.) 02/11/2019 05:54 [facility] [place] TYPE: Emergency COMPLAINT: - BLEEDING 02/04/2019 09:24 [facility] [place] TYPE: Emergency COMPLAINT: - VOMITTING 01/28/2019 23:53 [facility] [place] TYPE: Emergency DIAGNOSES: - FALL - Contusion of right lower leg, initial encounter - Laceration without foreign body of other part of head, initial encounter - Concussion without loss of consciousness, initial encounter 12/12/2018 08:36 [facility] [place] TYPE: Emergency COMPLAINT: - CAN'T STAND UP DIAGNOSES: - Essential (primary) hypertension - Alcohol dependence, uncomplicated - Nutritional anemia, unspecified - Unspecified protein-calorie malnutrition - Weakness - Hypomagnesemia - Acquired absence of both cervix and uterus - Other termite inspector (current) drug therapy - Acquired absence of other specified parts of digestive tract - Functional quadriplegia 12/10/2018 13:18 [facility] [place] TYPE: Emergency COMPLAINT: - FEET SWELLING,COUGH,WEAKNESS DIAGNOSES: - Other pancytopenia - Essential (primary) hypertension - Other specified disorders of veins - Acquired absence of other specified parts of digestive tract - Acquired absence of both cervix and uterus - Pain in right lower leg - Pleural effusion, not elsewhere classified 11/23/2018 12:15 [facility] [place] TYPE: Emergency DIAGNOSES: - Weakness - Lobar pneumonia, unspecified organism - VOMITING AND DIARRHEA NOT ABLE TO EAT WEAKNESS - Other pancytopenia - Urinary tract infection, site not specified 10/28/2018 21:04 [facility] [place] TYPE: Emergency COMPLAINT: - SOB DIAGNOSES: - Acquired absence of other specified parts of digestive tract - Chest pain, unspecified - Essential (primary) hypertension - Acquired absence of both cervix and uterus - Other chest pain - Acquired absence of other organs - Other halfway (current) drug therapy 04/05/2018 15:21 [facility] [place] TYPE: Emergency COMPLAINT: - SHORTNESS OF BREATH INPATIENT VISIT TRACKING (12 MO.) 02/04/2019 09:25 [facility] [place] TYPE: Observation COMPLAINT: - ANEMIA DIAGNOSES: - Alcoholic gastritis without bleeding - Hypersplenism - Nausea with vomiting, unspecified - intermission coordinator (current) use of inhaled steroids - Dehydration - Portal hypertension - Major depressive disorder, single episode, unspecified - Other pancytopenia - Acute posthemorrhagic anemia - Unspecified fall, initial encounter - Other halfway (current) drug therapy - Contusion of right front wall of thorax, initial encounter - Contusion of left lower leg, initial encounter - Hypomagnesemia - Essential tremor - Hypokalemia - Contusion of other part of head, initial encounter - Contusion of right lower leg, initial encounter - Alcoholic cirrhosis of liver without ascites - Contusion of abdominal wall, initial encounter 11/23/2018 12:15 [facility] [place] TYPE: Medical Surgical DIAGNOSES: - Urinary tract infection, site not specified - Weakness - Other pancytopenia - Lobar pneumonia, unspecified organism 04/07/2018 15:08 [facility] [place] TYPE: Medical Surgical DIAGNOSES: - DIARRHEA EPIGASTRIC 04/05/2018 20:55 [facility] [place] TYPE: Medical Surgical COMPLAINT: - DIARRHEA EPIGASTRIC PAIN DIAGNOSES: - Hypokalemia - Hypomagnesemia - Alcohol use, unspecified with unspecified alcohol-induced disorder - Chest pain, unspecified - Noninfective gastroenteritis and colitis, unspecified - Gastro-esophageal reflux disease without esophagitis - Abnormal levels of other serum enzymes [email or web address]
== END 2019-02-11 09:38 | disposition short-term general hospital (02) ==
LOC: ED 05:54
DX: K74.60 Unspecified cirrhosis of liver (principal); I85.01 Esophageal varices with bleeding; K92.2 Gastrointestinal hemorrhage, unspecified; R00.0 Tachycardia, unspecified; I10 Essential (primary) hypertension; Z79.899 Other long term (current) drug therapy
CPT/HCPCS: 80053; 85025; 85610; 85730; 86850; 86900; 86901; 86920; 96374; 96375; 96376; 99285-25; C9113; G0480; J0696; J2354; J2405; J7030; J7060